=== PATIENT | male | born 1960 | race Caucasian/White ===

== ENCOUNTER 2016-09-10 21:43 | Day surgery (SDC) | payer BC ==
[~2016-09-10] VITALS: Ht 180.3 cm; Wt 91.0 kg
[~2016-09-10 21:43] MED LIST: ASPIRIN E.C. 8181 MG PO; COZAAR 50MG50 MG/TAB PO; FLOMAX 0.40.4 MG/CAP PO; HCTZ 25MG TAB25 MG PO; LIPITOR20 MG PO; NORCO 325 MG-51 TAB PO; PLAVIX 75MG TAB75 MG PO; ZOFRAN 4MG T4 MG/TAB PO; [UNRECOGNIZED DRUG - REMARK]
[2016-09-10 22:15] LABS: BASO % 0.4 % (0.0-2.0); EOS # 0.2 (0.0-0.7); EOS % 2.3 % (0-4.0); GRAN # 7.9 (1.4-6.5); GRAN % 79.9 % (42.2-75.2); HEMATOCRIT 43.6 % (42.0-52.0); HEMOGLOBIN 15.1 g/dl (13.5-18.0); LYMPH # 1.1 (1.2-3.4); LYMPH % 10.8 % (20.0-51.0); MEAN CELL VOLUME 88 fl (80.0-100.0); MEAN CORPUSCULAR HEMOGLOBIN 31 pg (27.0-31.0); MEAN CORPUSCULAR HGB CONC 35 g/dl (33.0-37.0); MEAN PLATELET VOLUME 10.1 fl (7.4-10.4); MONO # 0.6 (0.1-0.6); MONO % 6.4 % (1.7-9.3); PLATELET COUNT 185 K/mm3 (130-400); RED BLOOD COUNT 4.93 M/mm3 (4.20-5.60); REDCELL DISTRIBUTION WIDTH-CV 12.1 % (11.5-14.5); WHITE BLOOD COUNT 9.9 K/mm3 (4.8-10.8)
[2016-09-10 22:20] LABS: PH 6 (5-8); SQUAMOUS EPITHELIAL 0-2 /hpf; URINE APPEARANCE Clear; URINE BACTERIA None Seen /hpf; URINE BILIRUBIN Negative (NEGATIVE); URINE BLOOD 3+ (NEGATIVE); URINE COLOR Yellow; URINE GLUCOSE Negative (NEGATIVE); URINE KETONE Negative (NEGATIVE); URINE RBC >50 /hpf; URINE UROBILINOGEN Negative (NEGATIVE)
[2016-09-10 22:24] LABS: ADJUSTED CALCIUM 8.7 mg/dL (8.4-10.2); ALBUMIN 4.3 gm/dL (3.5-5.0); CALCIUM 8.9 mg/dL (8.4-10.2); CREATININE, serum 1.32 mg/dL (0.66-1.25); POTASSIUM 4.1 mmol/L (3.4-5.0); TOTAL PROTEIN 7.2 gm/dL (6.4-8.2)
[2016-09-10] MEDS ORDERED: COZAAR 25MG25 MG/TAB PO (22:57)
[2016-09-10] MEDS ORDERED: ELIQUIS 5MG PO (22:58)
[2016-09-10] MEDS ORDERED: PRENATAL MVI (22:58)
[2016-09-10] MEDS ORDERED: NORCO 325 MG-51 TAB PO (22:58)
[2016-09-10 23:42] VITALS: BP 125/78; PULSE 64
[2016-09-10 23:57] VITALS: BP 121/73; PULSE 53
[2016-09-11] VITALS (13 sets, daily range): BP systolic 114–157; BP diastolic 67–84; PULSE 48–70; TEMP 97.4–98.7
[2016-09-12 04:21] VITALS: BP 135/71; PULSE 61; TEMP 98.6
[2016-09-12 07:55] VITALS: BP 130/66; PULSE 61; TEMP 98.6
[2016-09-12 11:45] VITALS: BP 131/71; PULSE 99; TEMP 98.1
[2016-09-12 18:04] VITALS: BP 142/72; PULSE 79; TEMP 99
[2016-09-12 18:30] VITALS: BP 143/72; PULSE 78; TEMP 98.9
[2016-09-13] MEDS ORDERED: MULTI VITAMINS1 TAB PO (17:17)
[2016-09-13] MEDS ORDERED: BENADRYL25 M2 PO (17:18)
== END 2016-09-12 19:26 | disposition home or self-care (01) ==
LOC: COL.ER 21:43 → SDCO 22:43 → MEDICAL 22:43 → SDCO 09-12 19:26
PROVIDERS: Emergency Medicine
DX: N20.1 Calculus of ureter (principal); I48.91 Unspecified atrial fibrillation; Z79.01 Long term (current) use of anticoagulants; Z86.73 Personal history of transient ischemic attack (TIA), and cerebral infarction without residual deficits; Z87.891 Personal history of nicotine dependence
CPT/HCPCS: OP; C1769; G0378; J1100; J1170; J1885; J2405; J2704; J3010; J7030; J7120; Q9967

== ENCOUNTER 2016-09-13 16:59 | Emergency (ER) | payer BC ==
[~2016-09-13] VITALS: Ht 180.3 cm; Wt 97.3 kg
[2016-09-13 16:59] VITALS: BP 172/82; TEMP 98.3
[~2016-09-13 16:59] MED LIST changes: +COZAAR 25MG25 MG/TAB PO; +ELIQUIS 5MG PO; +PRENATAL MVI
[2016-09-13] MEDS ORDERED: MULTI VITAMINS1 TAB PO (17:17)
[2016-09-13] MEDS ORDERED: BENADRYL25 M2 PO (17:18)
[2016-09-13 17:50] VITALS: PULSE 62
== END 2016-09-13 17:50 | disposition home or self-care (01) ==
LOC: COL.ER 16:59
DX: R60.9 Edema, unspecified (principal)
CPT/HCPCS: J8540